=== PATIENT | male | born 1945 | race Two or more races ===

== ENCOUNTER → 2021-02-26 | Outpatient (CLI) | payer OTHER ==
[~2021-02-26] MED LIST: ALFU10TA4 PO; AMLO-187 PO; GADOTERATE 7.5 MMOL/15ML VIAL. IVP ONE; OMEP20CA16 PO
--- NOTE | 2021-02-26 11:54 | KCIC ---
EXAM: Brain MRI with and without contrast. HISTORY: Stroke. TECHNIQUE: Multiplanar, multisequence magnetic resonance imaging of the brain was performed prior to and following the administration of intravenous contrast. COMPARISON: None. FINDINGS: There is no restricted diffusion to suggest acute or subacute infarction. There is no susce ptibility effect to suggest hemorrhage. There is no mass effect or midline shift. There is no hydroce phalus. There are a few scattered foci of signal change within the cerebral white matter, a nonspecif ic finding. There is cerebral volume loss. The orbits are unremarkable. There is mild paranasal sinus mucosal thickening. The mastoid air cells are clear. There are normal flow voids within the cerebral vessels. There is no suspicious calvarial lesion. There is no suspicious enhancing lesion. IMPRESSION: 1. No acute intracranial finding. 2. Scattered foci of signal change within the cerebral white matter, likely due to chronic small vess el disease in a patient of this age. Electronically signed by: Tammi Martinez MD (02/26/2021 11:52 AM) [id number]
--- NOTE | 2021-02-26 13:08 | KCIC ---
EXAM: Cervical spine MRI without contrast. HISTORY: Cervical radiculopathy. TECHNIQUE: Multiplanar, multisequence magnetic resonance imaging of the cervical spine was performed without contrast. COMPARISON: None. FINDINGS: There is 3 mm anterolisthesis of C3-4 and C5 and 2 mm anterolisthesis of C7 on T1. There is degenerative endplate remodeling with disc space narrowing and osteophytosis primarily at C5-C6 and C6-C7. There is multilevel facet arthropathy. There is no suspicious osseous lesion. There is no acut e or subacute fracture. There is no suspicious spinal cord lesion. The skull base and posterior fossa are unremarkable. At C2-C3, there is mild right greater than left facet arthropathy. There is no stenosis. At C3-C4, there is a disc bulge and endplate remodeling. There is mild right and moderate left facet arthropathy. There is mild left foraminal stenosis. At C4-C5, there is a disc bulge and endplate remodeling. There is moderate right and mild left facet arthropathy. There is no stenosis. At C5-C6, there is endplate osteophytosis. There is moderate right facet arthropathy. There is no wendi nosis. At C6-C7, there is a disc bulge and endplate osteophytosis. There is uncovertebral arthropathy. There is moderate right and mild left foraminal stenosis. 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 T his results in mild left foraminal stenosis at C3-C4 and moderate right and mild left foraminal steno sis at C6-C7. Electronically signed by: Tammi Martinez MD (02/26/2021 1:06 PM) [id number]
== END ==
LOC: KCIC MRI 09:47
PROVIDERS: ATTEND Anesthesiology Pain Medicine
DX: M47.22 Other spondylosis with radiculopathy, cervical region (principal); J34.89 Other specified disorders of nose and nasal sinuses; G93.89 Other specified disorders of brain; M50.21 Other cervical disc displacement, high cervical region; M48.02 Spinal stenosis, cervical region; M48.8X2 Other specified spondylopathies, cervical region; M43.12 Spondylolisthesis, cervical region; M25.78 Osteophyte, vertebrae
CPT/HCPCS: 70553; 72141; 82565; A9575